=== PATIENT | female | born 1965 | race Caucasian/White ===

== ENCOUNTER 2019-06-08 17:37 | Emergency (ER) | payer BC, SELFPAY ==
[2019-06-08 17:40] VITALS: BP 125/79; PULSE 83; RESP 20; TEMP 36.2; O2SAT 97; BMI 27.4
--- NOTE | 2019-06-08 17:44 | DI.RAD.S_ITS ---
PROCEDURE: XR CERVICAL SPINE 2V OR 3V INDICATIONS: injury in March. Has continued pain TECHNIQUE: 3 view(s) of the cervical spine were acquired. COMPARISON: None. FINDINGS: Bones: No fractures or dislocations to the T1 level. The lateral masses of C1 appear intact on the odontoid view. No suspicious bony lesions. Soft tissues: No prevertebral soft tissue swelling. IMPRESSION: No acute osseous abnormality. Mild degenerative change of the cervical spine. Dictated by: Brando Mitchell M.D. on 06/08/2019 at 18:34 Approved by: Brando Mitchell M.D. on 06/08/2019 at 18:36
--- NOTE | 2019-06-08 17:44 | DI.RAD.S_ITS ---
PROCEDURE: XR SHOULDER LT MIN 2V INDICATIONS: injury in March. Has continued pain TECHNIQUE: 3 views of the shoulder were acquired. COMPARISON: None. FINDINGS: Bones: No fractures or dislocations. No suspicious bony lesions. Visualized ribs appear intact. Soft tissues: No suspicious soft tissue calcifications. Visualized left hemithorax is clear. IMPRESSION: No acute osseous abnormality. Dictated by: Brando Mitchell M.D. on 06/08/2019 at 18:36 Approved by: Brando Mitchell M.D. on 06/08/2019 at 18:36
[2019-06-08] MEDS: LIDOCAINE PATCH 1 EACH ADH..PATCH TOP (19:19)
[2019-06-08] MEDS: KETOROLAC 60 MG/2 ML VIAL IM (19:19)
[2019-06-08 19:25] VITALS: PULSE 70
--- NOTE | 2019-06-08 20:02 | ED.UPPEXIN ---
HPI - Extremity Injury (Upper) <KALYANI CruzBC - Last Filed: 06/08/19 20:09> General Chief Complaint: Extremity Injury, Upper Stated Complaint: LT SHOULDER PAIN Time Seen by Provider: 06/08/19 18:36 Source: patient and family Mode of arrival: ambulatory Limitations: no limitations History of Present Illness HPI narrative: The patient is a 53-year-old female nonsmoker with history of seizures who presents for chief complaint of left shoulder pain. This shoulder pain has been ongoing since the middle of March, when she took a ground level fall. She states she slipped in the shower when her grandchildren but shampoo on the floor. She states she has taken a few doses of ibuprofen. Her states that she is very stubborn and did not seek help, so he flew out from the [place] to force her to come to the emergency department. She states that sometimes her arm is so weak that she cannot lift it. This she states that the pain radiates up to her neck. She denies any previous loss of consciousness, ink new onset incontinence of bowel, incontinence of bladder saddle anesthesia. She denies any current neck pain she states she does not want narcotics as they decreased her seizure threshold. Her primary care providers in the [place]. Related Data Previous Rx's Medication Instructions Recorded ketorolac 10 mg PO TID PRN #20 tab 06/08/19 Allergies Allergy/AdvReac Type Severity Reaction Status Date / Time doxycycline Allergy Verified 06/08/19 17:43 Review of Systems <RIANA Cruz - Last Filed: 06/08/19 20:09> Review of Systems GENERAL: Denies chills, fatigue, malaise, fever, sweats. HEENT: Denies sinus pain, ear pain, sore throat, difficulty swallowing, dizziness. RESPIRATORY: Denies dyspnea, cough, wheezing, hemoptysis, sputum. CARDIOVASCULAR: Denies chest pain, palpitations, orthopnea, edema, GASTROINTESTINAL: Denies nausea, vomiting, abdominal pain, diarrhea, constipation, melena. : Denies dysuria, frequency, incontinence, hematuria, urinary retention. MUSCULOSKELETAL: See HPI SKIN: Denies rash, skin lesions, or other NEUROLOGIC: Denies weakness, headache, numbness, change in speech, confusion, seizures, incoordination. PSYCHIATRIC: No concerning psychosocial issues. 12 point review of systems is negative except for those stated above PFSH <RIANA Cruz - Last Filed: 06/08/19 20:09> Medical History (Updated 06/08/19 @ 20:07 by RIANA Cruz) History of seizures (Acute) Social History Smoking Status: Never smoker Social History Smoking Status: Never smoker Exam <RIANA Cruz - Last Filed: 06/08/19 20:09> Narrative Exam Narrative: GENERAL: This is a well-nourished, well-developed patient, in no acute distress HEAD: Atraumatic. Normocephalic. No temporal or scalp tenderness. EYES: Pupils equal round and reactive. Extraocular motions intact. No scleral icterus. No injection or drainage. ENT: Nose without bleeding, purulent drainage or septal hematoma. Throat without erythema, tonsillar hypertrophy or exudate. Uvula midline. Airway patent. NECK: Trachea midline. No JVD or lymphadenopathy. Supple, nontender, no meningeal signs. CARDIOVASCULAR: Regular rate and rhythm without murmurs, gallops, or rubs. RESPIRATORY: Clear to auscultation. Breath sounds equal bilaterally GASTROINTESTINAL: Abdomen soft, non-tender, nondistended. No hepato-splenomegaly, or palpable masses. No guarding. EXTREMITIES: Diffuse pain to palpation of left shoulder. Patient is able to pronate supinate bilateral arms, flex and extend left shoulder. Negative empty can test. Positive radial pulse left hand. BACK: Nontender without deformity or crepitance. No flank tenderness. No pain to C, T, L-spine palpation. NEURO: AOx3. SKIN: No erythema, ecchymosis, laceration or abrasion noted right shoulder. Initial Vital Signs Initial Vital Signs: Vital Signs Temperature 97.2 F L 06/08/19 17:40 Pulse Rate 83 06/08/19 17:40 Respiratory Rate 20 06/08/19 17:40 Blood Pressure 125/79 06/08/19 17:40 Pulse Oximetry 97 06/08/19 17:40 <Jovan Nuñez DO - Last Filed: 06/08/19 20:19> Initial Vital Signs Initial Vital Signs: Vital Signs Temperature 97.2 F L 06/08/19 17:40 Pulse Rate 83 06/08/19 17:40 Respiratory Rate 20 06/08/19 17:40 Blood Pressure 125/79 06/08/19 17:40 Pulse Oximetry 97 06/08/19 17:40 Course <RIANA Cruz - Last Filed: 06/08/19 20:09> Orders Ordered: ED Orders 06/08/19 17:44 XR cervical spine 2V or 3V Stat XR shoulder LT min 2V Stat Discontinued Medications Ketorolac Tromethamine (Toradol) 60 mg IM NOW ONE Stop: 06/08/19 18:57 Last Admin: 06/08/19 19:19 Dose: 60 mg Lidocaine (Lidoderm) 1 each TOP NOW ONE Stop: 06/08/19 18:57 Last Admin: 06/08/19 19:19 Dose: 1 each Vital Signs - 8 hr 06/08/19 17:40 06/08/19 19:25 06/08/19 20:15 Temperature 97.2 F L Pulse Rate 83 81 Pulse Rate [Left Radial] 70 Respiratory Rate 20 Blood Pressure 125/79 115/69 Pulse Oximetry 97 97 <Jovan Nuñez DO - Last Filed: 06/08/19 20:19> Orders Ordered: ED Orders 06/08/19 17:44 XR cervical spine 2V or 3V Stat XR shoulder LT min 2V Stat Discontinued Medications Ketorolac Tromethamine (Toradol) 60 mg IM NOW ONE Stop: 06/08/19 18:57 Last Admin: 06/08/19 19:19 Dose: 60 mg Lidocaine (Lidoderm) 1 each TOP NOW ONE Stop: 06/08/19 18:57 Last Admin: 06/08/19 19:19 Dose: 1 each Vital Signs - 8 hr 06/08/19 17:40 06/08/19 19:25 06/08/19 20:15 Temperature 97.2 F L Pulse Rate 83 81 Pulse Rate [Left Radial] 70 Respiratory Rate 20 Blood Pressure 125/79 115/69 Pulse Oximetry 97 97 MDM - Extremity Injury (Upper) <RIANA Cruz - Last Filed: 06/08/19 20:09> Imaging Data C-spine x-ray: Radiologist's impression: [address] [address] XRay Report Signed Patient: ORQUIDEA TA LMR#: [id number] : 1965Acct:[id number] Age/Sex: 53 / FDate of Service: 06/08/19 Loc: ED Accession Number: [id number] Procedure: XR cervical spine 2V or 3V Ordering Provider: Lorie Gonsalves D.O. PROCEDURE: XR CERVICAL SPINE 2V OR 3V INDICATIONS: injury in March. Has continued pain TECHNIQUE: 3 view(s) of the cervical spine were acquired. COMPARISON: None. FINDINGS: Bones: No fractures or dislocations to the T1 level. The lateral masses of C1 appear intact on the odontoid view. No suspicious bony lesions. Soft tissues: No prevertebral soft tissue swelling. IMPRESSION: No acute osseous abnormality. Mild degenerative change of the cervical spine. Dictated by: Brando Mitchell M.D. on 06/08/2019 at 18:34 Approved by: Brando Mitchell M.D. on 06/08/2019 at 18:36 Left shoulder x-ray: Radiologist's impression: [place] [address] XRay Report Signed Patient: ORQUIDEA TA LMR#: [id number] : 1965Acct:[id number] Age/Sex: 53 / FDate of Service: 06/08/19 Loc: ED Accession Number: [id number] Procedure: XR shoulder LT min 2V Ordering Provider: Lorie Gonsalves D.O. PROCEDURE: XR SHOULDER LT MIN 2V INDICATIONS: injury in March. Has continued pain TECHNIQUE: 3 views of the shoulder were acquired. COMPARISON: None. FINDINGS: Bones: No fractures or dislocations. No suspicious bony lesions. Visualized ribs appear intact. Soft tissues: No suspicious soft tissue calcifications. Visualized left hemithorax is clear. IMPRESSION: No acute osseous abnormality. Dictated by: Brando Mitchell M.D. on 06/08/2019 at 18:36 Approved by: Brando Mitchell M.D. on 06/08/2019 at 18:36 [facility] Narrative Medical decision making narrative: The patient is a 53-year-old female who presents for chief complaint of shoulder pain 2 months after ground level fall. She has negative x-rays. She is neurovascularly intact. She does have pain on extension of her shoulder, I gave her prescription of Toradol. Discussed [id number] lidocaine patches. Patient does not want anything stronger due to seizure concerns. I discussed at length that she should follow up with primary care provider, she might need further imaging and or physical therapy. Discussed coming back to the ER for any acute concerns such as chest pain, shortness of breath, incontinence of bowel, incontinence of bladder saddle anesthesia. Patient has been state understanding of no questions or concerns. Discharge Plan Departure Patient Disposition: Home Clinical Impression: Left shoulder pain Qualifiers: Chronicity: acute Qualified Code(s): M25.512 - Pain in left shoulder Discharge Date/Time: 06/08/19 20:15 Interventions: ED Discharge Assessment Last Done: 06/08/19 20:15 Instructions: How To Perform RICE (Rest, Ice, Compress, Elevate), DI for Shoulder Pain Activity Restrictions/Additional Instructions: Your x-rays do not show any acute findings today. This does not exclude a soft tissue injury Please use rest ice compression elevation. I have given you a prescription of Toradol. Please do not combine this with Aleve ibuprofen or any other NSAIDs. Please come back to emergency department for any acute concerns such as chest pain, shortness of breath, incontinence of bowel, incontinence of bladder or numbness in her groin Prescriptions: New ketorolac 10 mg tablet 10 mg PO TID PRN (Reason: pain) Qty: 20 RF: 0 Referrals: [facility] [Outside] Located Within [facility] [Outside] <Jovan Nuñez DO - Last Filed: 06/08/19 20:19> [place] ED Attending Kenyatta Attestation: I was available for consultation during this patient's emergency department encounter
--- NOTE | 2019-06-08 20:07 | ED_ITS ---
HPI - Extremity Injury (Upper) <KALYANI CruzBC - Last Filed: 06/08/19 20:09> General Chief Complaint: Extremity Injury, Upper Stated Complaint: LT SHOULDER PAIN Time Seen by Provider: 06/08/19 18:36 Source: patient and family Mode of arrival: ambulatory Limitations: no limitations History of Present Illness HPI narrative: The patient is a 53-year-old female nonsmoker with history of seizures who presents for chief complaint of left shoulder pain. This shoulder pain has been ongoing since the middle of March, when she took a ground level fall. She states she slipped in the shower when her grandchildren but shampoo on the floor. She states she has taken a few doses of ibuprofen. Her states that she is very stubborn and did not seek help, so he flew out from the [place] to force her to come to the emergency department. She states that sometimes her arm is so weak that she cannot lift it. This she states that the pain radiates up to her neck. She denies any previous loss of consciousness, ink new onset incontinence of bowel, incontinence of bladder saddle anesthesia. She denies any current neck pain she states she does not want narcotics as they decreased her seizure threshold. Her primary care providers in the [place]. Related Data Previous Rx's Medication Instructions Recorded ketorolac 10 mg PO TID PRN #20 tab 06/08/19 Allergies Allergy/AdvReac Type Severity Reaction Status Date / Time doxycycline Allergy Verified 06/08/19 17:43 Review of Systems <RIANA Cruz - Last Filed: 06/08/19 20:09> Review of Systems GENERAL: Denies chills, fatigue, malaise, fever, sweats. HEENT: Denies sinus pain, ear pain, sore throat, difficulty swallowing, dizziness. RESPIRATORY: Denies dyspnea, cough, wheezing, hemoptysis, sputum. CARDIOVASCULAR: Denies chest pain, palpitations, orthopnea, edema, GASTROINTESTINAL: Denies nausea, vomiting, abdominal pain, diarrhea, constipation, melena. : Denies dysuria, frequency, incontinence, hematuria, urinary retention. MUSCULOSKELETAL: See HPI SKIN: Denies rash, skin lesions, or other NEUROLOGIC: Denies weakness, headache, numbness, change in speech, confusion, seizures, incoordination. PSYCHIATRIC: No concerning psychosocial issues. 12 point review of systems is negative except for those stated above PFSH <RIANA Cruz - Last Filed: 06/08/19 20:09> Medical History (Updated 06/08/19 @ 20:07 by RIANA Cruz) History of seizures (Acute) Social History Smoking Status: Never smoker Social History Smoking Status: Never smoker Exam <RIANA Cruz - Last Filed: 06/08/19 20:09> Narrative Exam Narrative: GENERAL: This is a well-nourished, well-developed patient, in no acute distress HEAD: Atraumatic. Normocephalic. No temporal or scalp tenderness. EYES: Pupils equal round and reactive. Extraocular motions intact. No scleral icterus. No injection or drainage. ENT: Nose without bleeding, purulent drainage or septal hematoma. Throat without erythema, tonsillar hypertrophy or exudate. Uvula midline. Airway patent. NECK: Trachea midline. No JVD or lymphadenopathy. Supple, nontender, no meningeal signs. CARDIOVASCULAR: Regular rate and rhythm without murmurs, gallops, or rubs. RESPIRATORY: Clear to auscultation. Breath sounds equal bilaterally GASTROINTESTINAL: Abdomen soft, non-tender, nondistended. No hepato- splenomegaly, or palpable masses. No guarding. EXTREMITIES: Diffuse pain to palpation of left shoulder. Patient is able to pronate supinate bilateral arms, flex and extend left shoulder. Negative empty can test. Positive radial pulse left hand. BACK: Nontender without deformity or crepitance. No flank tenderness. No pain to C, T, L-spine palpation. NEURO: AOx3. SKIN: No erythema, ecchymosis, laceration or abrasion noted right shoulder. Initial Vital Signs Initial Vital Signs: Vital Signs Temperature 97.2 F L 06/08/19 17:40 Pulse Rate 83 06/08/19 17:40 Respiratory Rate 20 06/08/19 17:40 Blood Pressure 125/79 06/08/19 17:40 Pulse Oximetry 97 06/08/19 17:40 <Jovan Nuñez DO - Last Filed: 06/08/19 20:19> Initial Vital Signs Initial Vital Signs: Vital Signs Temperature 97.2 F L 06/08/19 17:40 Pulse Rate 83 06/08/19 17:40 Respiratory Rate 20 06/08/19 17:40 Blood Pressure 125/79 06/08/19 17:40 Pulse Oximetry 97 06/08/19 17:40 Course <RIANA Cruz - Last Filed: 06/08/19 20:09> Orders Ordered: ED Orders 06/08/19 17:44 XR cervical spine 2V or 3V Stat XR shoulder LT min 2V Stat Discontinued Medications Ketorolac Tromethamine (Toradol) 60 mg IM NOW ONE Stop: 06/08/19 18:57 Last Admin: 06/08/19 19:19 Dose: 60 mg Lidocaine (Lidoderm) 1 each TOP NOW ONE Stop: 06/08/19 18:57 Last Admin: 06/08/19 19:19 Dose: 1 each Vital Signs - 8 hr 06/08/19 17:40 06/08/19 19:25 06/08/19 20:15 Temperature 97.2 F L Pulse Rate 83 81 Pulse Rate [Left Radial] 70 Respiratory Rate 20 Blood Pressure 125/79 115/69 Pulse Oximetry 97 97 <Jovan Nuñez DO - Last Filed: 06/08/19 20:19> Orders Ordered: ED Orders 06/08/19 17:44 XR cervical spine 2V or 3V Stat XR shoulder LT min 2V Stat Discontinued Medications Ketorolac Tromethamine (Toradol) 60 mg IM NOW ONE Stop: 06/08/19 18:57 Last Admin: 06/08/19 19:19 Dose: 60 mg Lidocaine (Lidoderm) 1 each TOP NOW ONE Stop: 06/08/19 18:57 Last Admin: 06/08/19 19:19 Dose: 1 each Vital Signs - 8 hr 06/08/19 17:40 06/08/19 19:25 06/08/19 20:15 Temperature 97.2 F L Pulse Rate 83 81 Pulse Rate [Left Radial] 70 Respiratory Rate 20 Blood Pressure 125/79 115/69 Pulse Oximetry 97 97 MDM - Extremity Injury (Upper) <RIANA Cruz - Last Filed: 06/08/19 20:09> Imaging Data C-spine x-ray: Radiologist's impression: [address] [address] XRay Report Signed Patient: ORQUIDEA TA LMR#: [id number] : 1965Acct:[id number] Age/Sex: 53 / FDate of Service: 06/08/19 Loc: ED Accession Number: [id number] Procedure: XR cervical spine 2V or 3V Ordering Provider: Lorie Gonsalves D.O. PROCEDURE: XR CERVICAL SPINE 2V OR 3V INDICATIONS: injury in March. Has continued pain TECHNIQUE: 3 view(s) of the cervical spine were acquired. COMPARISON: None. FINDINGS: Bones: No fractures or dislocations to the T1 level. The lateral masses of C1 appear intact on the odontoid view. No suspicious bony lesions. Soft tissues: No prevertebral soft tissue swelling. IMPRESSION: No acute osseous abnormality. Mild degenerative change of the cervical spine. Dictated by: Brando Mitchell M.D. on 06/08/2019 at 18:34 Approved by: Brando Mitchell M.D. on 06/08/2019 at 18:36 Left shoulder x-ray: Radiologist's impression: [place] [address] XRay Report Signed Patient: ORQUIDEA TA LMR#: [id number] : 1965Acct:[id number] Age/Sex: 53 / FDate of Service: 06/08/19 Loc: ED Accession Number: [id number] Procedure: XR shoulder LT min 2V Ordering Provider: Lorie Gonsalves D.O. PROCEDURE: XR SHOULDER LT MIN 2V INDICATIONS: injury in March. Has continued pain TECHNIQUE: 3 views of the shoulder were acquired. COMPARISON: None. FINDINGS: Bones: No fractures or dislocations. No suspicious bony lesions. Visualized ribs appear intact. Soft tissues: No suspicious soft tissue calcifications. Visualized left hemithorax is clear. IMPRESSION: No acute osseous abnormality. Dictated by: Brando Mitchell M.D. on 06/08/2019 at 18:36 Approved by: Brando Mitchell M.D. on 06/08/2019 at 18:36 [facility] Narrative Medical decision making narrative: The patient is a 53-year-old female who presents for chief complaint of shoulder pain 2 months after ground level fall. She has negative x-rays. She is neurovascularly intact. She does have pain on extension of her shoulder, I gave her prescription of Toradol. Discussed [id number] lidocaine patches. Patient does not want anything stronger due to seizure concerns. I discussed at length that she should follow up with primary care provider, she might need further imaging and or physical therapy. Discussed coming back to the ER for any acute concerns such as chest pain, shortness of breath, incontinence of bowel, incontinence of bladder saddle anesthesia. Patient has been state understanding of no questions or concerns. Discharge Plan Departure Patient Disposition: Home Clinical Impression: Left shoulder pain Qualifiers: Chronicity: acute Qualified Code(s): M25.512 - Pain in left shoulder Discharge Date/Time: 06/08/19 20:15 Interventions: ED Discharge Assessment Last Done: 06/08/19 20:15 Instructions: How To Perform RICE (Rest, Ice, Compress, Elevate), DI for Shoulder Pain Activity Restrictions/Additional Instructions: Your x-rays do not show any acute findings today. This does not exclude a soft tissue injury Please use rest ice compression elevation. I have given you a prescription of Toradol. Please do not combine this with Aleve ibuprofen or any other NSAIDs. Please come back to emergency department for any acute concerns such as chest pain, shortness of breath, incontinence of bowel, incontinence of bladder or numbness in her groin Prescriptions: New ketorolac 10 mg tablet 10 mg PO TID PRN (Reason: pain) Qty: 20 RF: 0 Referrals: [facility] [Outside] [facility] Resources [Outside] <Jovan Nuñez DO - Last Filed: 06/08/19 20:19> [place] ED Attending Kenyatta Attestation: I was available for consultation during this patient's emergency department encounter
[2019-06-08 20:15] VITALS: BP 115/69; PULSE 81; O2SAT 97
== END 2019-06-08 20:15 | disposition home or self-care (01) ==
PROVIDERS: Emergency Provider Nurse Practitioner Family
DX: M25.512 Pain in left shoulder (principal)
CPT/HCPCS: 72040; 73030; 96372; 99283; J1885